=== PATIENT | male | born 1985 | race African-American/Black ===

== ENCOUNTER 2018-05-24 21:49 | Emergency (ER) | payer MEDICAID ==
[~2018-05-24] VITALS: Ht 180.3 cm; Wt 122.0 kg
[2018-05-25] MEDS ORDERED: IBUPROFEN 600MG TABLET PO ONE (01:15)
[2018-05-25] MEDS ORDERED: TRAMADOL 50MG TABLET PO ONE (01:15)
[2018-05-25 03:23] VITALS: BP 133/84
== END 2018-05-25 03:28 | disposition home or self-care (01) ==
LOC: ER 21:49
DX: S62.396A Other fracture of fifth metacarpal bone, right hand, initial encounter for closed fracture (principal); F12.10 Cannabis abuse, uncomplicated; W22.09XA Striking against other stationary object, initial encounter; Y93.89 Activity, other specified; Y92.89 Other specified places as the place of occurrence of the external cause
CPT/HCPCS: 29125; 73130; 99284